=== PATIENT | female | born 2000 | race Caucasian/White ===

== ENCOUNTER 2020-10-17 14:16 | Emergency (ER) | payer BC, SELFPAY ==
--- NOTE | ~2020-10-17 | XR_ITS ---
EXAMINATION: XR foot RT min 3V DATE: 10/17/2020 14:45 INDICATION: Right foot pain TECHNIQUE: Dorsoplantar, lateral, and 2 oblique views of the right foot were obtained. COMPARISON: None. FINDINGS: There is no fracture, dislocation, or subluxation. The bones and joint spaces are normal. T here is plantar soft tissue swelling of the foot. IMPRESSION: 1. Plantar soft tissue swelling of the foot without acute osseous abnormality. Reviewed, dictated and finalized at location B.
[2020-10-17 14:20] VITALS: BP 138/59; PULSE 100; RESP 16; TEMP 36.6; O2SAT 100
--- NOTE | 2020-10-17 14:28 | ED.GENADULT ---
HPI - General Adult General Chief complaint: Extremity Injury, Lower Stated complaint: right foot pain Time Seen by Provider: 10/17/20 14:29 Source: patient Mode of arrival: ambulatory Limitations: no limitations History of Present Illness HPI narrative: 20-year-old female patient presents to the [facility] with complaints of right foot pain. Patient states she was walking along on this past Tuesday and counter rolled her foot. Patient states since then she has been having pain. Patient states she been taking ibuprofen, elevating and icing it. Denies wrapping it. Patient states she has been working on it and hurts worse with applying pressure or walking on it. Denies any numbness or tingling to the toes. Related Data Home Medications Medication Instructions Recorded Confirmed aripiprazole 15 mg PO DAILY 10/17/20 10/17/20 etonogestrel [Nexplanon] 1 implant SUBDERMAL ONCE 10/17/20 10/17/20 trazodone 100 mg PO HS PRN 10/17/20 10/17/20 Allergies Allergy/AdvReac Type Severity Reaction Status Date / Time No Known Allergies Allergy Verified 10/17/20 14:39 Review of Systems Review of Systems: Narrative: CONSTITUTIONAL: Denies fever, chills, or sweats. EYES: Denies visual changes, redness, or discharge. ENT: Denies rhinorrhea, congestion, sore throat, or otalgia. CARDIOVASCULAR: Denies chest pain, palpitations, or edema. RESPIRATORY: Denies cough or dyspnea. GASTROINTESTINAL: Denies abdominal pain, nausea, vomiting, or diarrhea. GENITOURINARY: Denies dysuria or hematuria. SKIN: Denies rash or itching. MUSCULOSKELETAL: Denies back pain, joint pain, or myalgia. Positive right foot pain NEUROLOGIC: Denies headache, numbness, or weakness. PSYCHIATRIC: Denies anxiety or depression. PMFSH Past Medical History Medical History (Updated 10/17/20 @ 15:08 by JULIAN Benton) Bipolar disorder Surgical History Surgical History (Updated 10/17/20 @ 14:29 by JULIAN Benton) H/O eye surgery Exam Narrative: Exam Narrative: GENERAL: Well-appearing, well-nourished, and in no acute distress. HEAD: Normocephalic, atraumatic. EYES: PERRLA and EOMI. ENT: Nares clear, no rhinorrhea or epistaxis. Mucous membranes moist. NECK: Supple. No lymphadenopathy CHEST: Clear to auscultation. No respiratory distress. HEART: Regular rate and rhythm. No murmur heard. Normal peripheral pulses. ABDOMEN: Soft, nontender, nondistended, normal active bowel sounds. EXTREMITIES: Patient able to bear weight and ambulate but has increased pain to the right foot. No surface trauma, ecchymosis, erythema, lesions, ulcers or break in skin integrity. The R foot is without obvious asymmetry or deformity when compared to the foot. No bony step-off, nontender to palpation over the toes, midfoot or hindfoot or sole. Patient has tenderness noted to the lateral side of the right foot. Normal plantar/dorsiflexion, inversion/eversion. Distal motor and neurovascular status are intact SKIN: Warm, dry, no rash. NEURO: No focal deficits. Alert and oriented x3. Course Reevaluation(s) Reevaluation #1: Reevaluated patient and notified her that the x-ray is negative for any acute fractures. Discussed with patient that we will go ahead and Jose wrap her foot and I want her to continue elevating it, icing it and taking Tylenol and ibuprofen for pain. Patient verbalized understanding denies any other questions or concerns at this time. Date: 10/17/20 Time: 15:10 Vital Signs Vital signs: Vital Signs Temperature 36.6 C 10/17/20 14:20 Pulse Rate 100 10/17/20 14:20 Respiratory Rate 16 10/17/20 14:20 Blood Pressure 138/59 L 10/17/20 14:20 Pulse Oximetry 100 10/17/20 14:20 Temperature 36.6 C 10/17/20 14:20 Pulse Rate 100 10/17/20 14:20 Respiratory Rate 16 10/17/20 14:20 Blood Pressure 138/59 L 10/17/20 14:20 Pulse Oximetry 100 10/17/20 14:20 Vital signs reviewed Medical Decision Making Differential Diagnosis Differential Di
== END 2020-10-17 15:13 | disposition home or self-care (01) ==
PROVIDERS: Emergency Provider Nurse Practitioner Family; PCP Internal Medicine Geriatric Medicine
DX: S93.601A Unspecified sprain of right foot, initial encounter (principal); X50.9XXA Other and unspecified overexertion or strenuous movements or postures, initial encounter
CPT/HCPCS: 73630; 99203; G0463